=== PATIENT | female | born 2000 | race Caucasian/White ===

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

== ENCOUNTER 2018-09-11 12:21 | Emergency (ER) | payer OTHER ==
[2018-09-11 12:30] VITALS: BP 108/63; PULSE 78; TEMP 98.3; BMI 30.9
[2018-09-11] MEDS ORDERED: IBUPROFEN 400 MG TABLET (FP) PO ONE ×2 (12:35→12:38)
--- NOTE | 2018-09-11 12:46 | PDOC ---
History of Present Illness - General Chief Complaint: Pain Stated Complaint: INJURY Time Seen by Provider: 09/11/18 12:29 History Source: Patient Exam Limitations: No Limitations Past History - Past Medical History Allergies/Adverse Reactions: Allergies Allergy/AdvReac Type Severity Reaction Status Date / Time No Known Drug Allergies Allergy Verified 04/23/16 07:44 Home Medications: Ambulatory Orders NK [No Known Home Medication] 03/10/14 Anemia: Yes COPD: No GI Disorders: Yes (gallstones) - Surgical History Cholecystectomy: Yes - Immunization History Immunization Up to Date: Yes - Suicide/Smoking/Psychosocial Hx Smoking History: Never smoked Number of Cigarettes Smoked Daily: 0 Information on smoking cessation initiated: Yes Hx Alcohol Use: No Drug/Substance Use Hx: No Substance Use Type: None *Physical Exam - Vital Signs Last Vital Signs Temp Pulse Resp BP Pulse Ox 98.3 F 78 20 108/63 09/11/18 12:28 09/11/18 12:28 09/11/18 12:28 09/11/18 12:28 - Physical Exam General Appearance: No: Apparent Distress Comments:: LUE distal pulses intact 09/11/18 12:39 Extremity: positive: Other (Mild TTP along L thumb MCP joint, slight pain with applying radial and ulnar stress to thumb, no deformity or swelling noted; no snuffbox tenderness, FROM of L wrist). negative: Swelling Integumentary: positive: Normal Color. negative: Ecchymosis, Bruising Neurologic: negative: Sensory Deficit ED Treatment Course - RADIOLOGY Radiology Studies Ordered: Category Date Time Status FINGER(S) LEFT [RAD] Stat Radiology 09/11/18 12:35 Ordered Medical Decision Making - Medical Decision Making 18 y/o F with no sig pmh presents with L thumb injury after falling down while dancing yesterday. States most of weight went onto L thumb. Denies wrist or elbow pain. Denies other trauma. Denies numbness or tingling Concern for gamekeeper's thumb Sent for xray to r/o fracture Given Motrin 09/11/18 12:42 Xray negative for fracture No joint laxity noted Will refer to ortho 09/11/18 12:55 *DC/Admit/Observation/Transfer Diagnosis at time of Disposition: Gamekeeper's thumb of left hand Qualifiers: Encounter type: initial encounter Qualified Code(s): S53.32XA - Traumatic rupture of left ulnar collateral ligament, initial encounter - Discharge Dispostion Disposition: HOME Condition at time of disposition: Stable Decision to Admit order: No - Referrals Referrals: Abhay Bender MD [Staff Physician] - 2 Days - Patient Instructions Printed Discharge Instructions: Ulnar Collateral Ligament Sprain of Thumb Additional Instructions: Thank you for choosing [facility]. It was a pleasure taking care of you. You may take Motrin 600 mg every 6 hours by mouth as needed for mild to moderate pain. Take Motrin with food. Please wear thumb splint as discussed You were referred to orthopedic doctor for further evaluation Return to the Emergency Department if your symptoms worsen or persist or have other concerning symptoms. - Post Discharge Activity
== END 2018-09-11 13:00 | disposition home or self-care (01) ==
LOC: JERFT 12:21
DX: S53.32XA Traumatic rupture of left ulnar collateral ligament, initial encounter (principal); W18.39XA Other fall on same level, initial encounter; Y93.41 Activity, dancing; Y92.89 Other specified places as the place of occurrence of the external cause; Y99.8 Other external cause status
CPT/HCPCS: 73140-TC-LT-FY; 99281-25

== ENCOUNTER 2019-02-15 23:46 | Emergency (ER) | payer OTHER ==
[2019-02-15 23:56] VITALS: BP 126/79; PULSE 135; TEMP 99.4; BMI 30.9
--- NOTE | 2019-02-16 00:11 | PDOC ---
History of Present Illness - General Chief Complaint: Lightheaded Stated Complaint: DIZZY/NAUSEA/FEVER Time Seen by Provider: 02/16/19 00:10 History Source: Patient Exam Limitations: No Limitations - History of Present Illness Initial Comments: Laine is a 18 yo obese F w a pmh of cholelithiasis s/p cholecystectomy who presents to the [facility] er with 3 days of a sore throat, throat pain and swelling, right neck pain, and some stomach discomfort. She has also had fevers up to 101 which have gone away after she took dayquil. LMP: 3 weeks ago PCP: In the [place] PSH: Cholecystectomy Social Hx: Denies smoking, drinking, or other substance usage Allergies: NKA, NKDA Past History - Past Medical History Allergies/Adverse Reactions: Allergies Allergy/AdvReac Type Severity Reaction Status Date / Time No Known Drug Allergies Allergy Verified 02/15/19 23:53 Home Medications: Ambulatory Orders Amoxicillin - [Amoxicillin 500mg Capsule -] 500 mg PO BID 10 Days #20 capsule Anemia: Yes COPD: No GI Disorders: Yes (gallstones) - Surgical History Cholecystectomy: Yes - Immunization History Immunization Up to Date: Yes - Psycho Social/Smoking Cessation Hx Smoking History: Never smoked Number of Cigarettes Smoked Daily: 0 Hx Alcohol Use: No Drug/Substance Use Hx: No Substance Use Type: None Review of Systems - Review of Systems Able to Perform ROS?: Yes Comments:: CONSTITUTIONAL: Present: Fevers, chills, fatigue EYES: Absent: visual changes ENT: Present: Sore throat Absent: ear pain CARDIOVASCULAR: Absent: chest pain, no palpitations RESPIRATORY: Absent: cough, no SOB GI: Present: Nausea Absent: abdominal pain, no vomiting, no constipation, no diarrhea GENITOURINARY: Absent: dysuria, no frequency, no hematuria MUSKULOSKELETAL: Absent: back pain, no arthralgia, no myalgia SKIN: Absent: rash NEURO: Absent: headache *Physical Exam - Vital Signs Last Vital Signs Temp Pulse Resp BP Pulse Ox 99.4 F 135 H 16 126/79 98 02/15/19 23:53 02/15/19 23:53 02/15/19 23:53 02/15/19 23:53 02/15/19 23:53 - Physical Exam GENERAL: Well-appearing, well-nourished. No apparent distress. HEENT: There is right tonsillar white exudate and swelling. Normocephalic, atraumatic. PERRLA, EOMI. No conjunctival pallor. Sclera are non-icteric. Moist mucous membranes. There is also right sided painful adenopathy CARDIOVASCULAR: Tachycardic rate. Normal S1, S2. Regular rhythm. PULMONARY: No evidence of respiratory distress. Lungs clear to auscultation bilaterally. No wheezing, rales or rhonchi. ABDOMEN: Soft, non-distended, non-tender. EXTREMITIES: Normal ROM in all four extremities. No gross deformities. SKIN: Warm, dry. No rash NEUROLOGICAL: No focal neurological deficits. Medical Decision Making - Medical Decision Making Laine is a 18 yo obese F w a pmh of cholelithiasis s/p cholecystectomy who presents to the [facility] er with 3 days of a sore throat, throat pain and swelling, right neck pain, and some stomach discomfort. She has also had fevers up to 101 which have gone away after she took dayquil. MDM: Patient has tonsillar exudate and swelling, has a temp over 38, and denies having a cough - Centor criteria - 3 Plan: Strep swab Rapid strep: Positive - Will treat w amoxicillin, 1st dose in ED - rest sent to pharmacy - NSAIDs + Tylenol for pain control - Plenty of fluids - Return precautions Discharge - Discharge Information Problems reviewed: Yes Clinical Impression/Diagnosis: Strep pharyngitis Condition: Improved Disposition: HOME - Admission No - Follow up/Referral Referrals: ON STAFF,NOT [Primary Care Provider] - - Patient Discharge Instructions Patient Printed Discharge Instructions: Group B Streptococcal Disease, DI for Strep Throat Additional Instructions: You came into the ER with a sore throat. We did a strep test which was positive. We sent Antibiotics to your pharmacy, please make sure to go and pick them up and take 500 mg twice daily for the next 10 days Come back to the ER immediately if your pain worsens, you feel like you are not getting better, or have any other new or worsening concerns. Please schedule a follow up appointment with your primary care doctor in the next 3 to 5 days. Thank you for coming to the [facility] ER. We hope you feel better soon! Print Language: BELARUSIAN - Post Discharge Activity
--- NOTE | 2019-02-16 00:16 | PDOC ---
Attending Attestation - Resident Resident Name: Magno Hilton - ED Attending Attestation I have performed the following: I have examined & evaluated the patient, The case was reviewed & discussed with the resident, I agree w/resident's findings & plan - HPI HPI: 02/16/19 01:47 see resident hpi 02/16/19 01:47 - Physicial Exam PE: 02/16/19 01:47 agree with resident exam - Medical Decision Making 02/16/19 01:48 18-year-old female with fever and sore throat Rapid strep is positive Patient to receive dexamethasone and Toradol in the emergency department Antibiotics Will DC with outpatient follow-up
[2019-02-16] MEDS ORDERED: ACETAMINOPHEN 325 MG TABLET (FP) PO ONE (01:35)
[2019-02-16] MEDS ORDERED: AMOXICILLIN 500 MG CAPSULE (FP) PO ONE (01:35)
[2019-02-16] MEDS ORDERED: KETOROLAC TROMETHAMINE 60 MG/2 ML VIAL IM ONE (01:46)
[2019-02-16] MEDS ORDERED: DEXAMETHASONE SOD PHOSPHATE 10 MG/1 ML VIAL IM ONE (01:46)
[2019-02-16] MEDS ORDERED: KETOROLAC TROMETHAMINE 30 MG/1 ML VIAL ONE (02:27)
[2019-02-16] MEDS ORDERED: ACETAMINOPHEN 325 MG TABLET (FP) ONE (02:27)
[2019-02-16] MEDS ORDERED: DEXAMETHASONE SOD PHOSPHATE 10 MG/1 ML VIAL ONE (02:27)
[2019-02-16] MEDS ORDERED: AMOXICILLIN 500 MG CAPSULE (FP) ONE (02:27)
--- NOTE | 2019-02-16 10:43 | EKG ---
Test Reason : Blood Pressure : / mmHG Vent. Rate : 120 BPM Atrial Rate : 120 BPM P-R Int : 138 ms QRS Dur : 080 ms QT Int : 320 ms P-R-T Axes : 064 031 014 degrees QTc Int : 452 ms SINUS TACHYCARDIA POSSIBLE LEFT ATRIAL ENLARGEMENT NONSPECIFIC ST ABNORMALITY ABNORMAL ECG NO PREVIOUS ECGS AVAILABLE Confirmed by SUKUMAR RINCON, DIONI ([id number]) on 02/16/2019 10:42:57 AM Referred By: Confirmed By:DIONI PATINO MD
== END 2019-02-16 02:32 | disposition home or self-care (01) ==
LOC: JER 23:46
PROC: 3E033GC Introduction of Other Therapeutic Substance into Peripheral Vein, Percutaneous Approach (ICD-10-PCS; principal; 2019-02-15)
DX: J02.0 Streptococcal pharyngitis (principal); D64.9 Anemia, unspecified; K80.80 Other cholelithiasis without obstruction
CPT/HCPCS: 87880; 93005; 93010; 99281-25; J1100